=== PATIENT | female | born 1955 | race Caucasian/White ===

== ENCOUNTER 2020-03-25 22:21 | Observation (INO) | payer MEDICARE ==
[~2020-03-25] VITALS: Ht 165.1 cm; Wt 93.2 kg
[2020-03-25] MEDS ORDERED: normal saline 1000ML IV soln IVB ONE (22:55)
[2020-03-25 23:11] LABS: BASOPHILS % (AUTO) 0.3 % (0-1); EOSINOPHILS # (AUTO) 0.1 X10'3 (0-0.9); EOSINOPHILS % (AUTO) 1.6 % (0-6); HEMATOCRIT 40.6 % (35.0-45.0); LYMPHOCYTES # (AUTO) 2.1 X10'3 (1.1-4.8); LYMPHOCYTES % (AUTO) 28.9 % (21-51); MEAN CORPUSCULAR HGB CONC 34.6 g/dL (33.0-36.5); MEAN PLATELET VOLUME 8.5 FL (7.4-10.4); MONOCYTES # (AUTO) 0.4 X10'3 (0-0.9); MONOCYTES % (AUTO) 5.6 % (2-12); NEUTROPHILS # (AUTO) 4.7 X10'3 (1.8-7.7); NEUTROPHILS % (AUTO) 63.6 % (42-75); PLATELET COUNT 185 X10'3 (140-440); RED BLOOD COUNT 4.83 X10'6 (4.20-5.60); RED CELL DISTRIBUTION WIDTH 13.3 % (11.5-14.5); WHITE BLOOD COUNT 7.4 X10'3 (4.5-11.0)
[2020-03-25 23:26] LABS: ALANINE AMINOTRANSFERASE 17 U/L (12-78); ALBUMIN 3.7 G/DL (3.4-5.0); ALBUMIN/GLOBULIN RATIO 0.9 (1.1-1.5); ALKALINE PHOSPHATASE 101 IU/L (46-116); ANION GAP 13 (8-16); ASPARTATE AMINO TRANSFERASE 19 U/L (10-37); BILIRUBIN,TOTAL 0.9 MG/DL (0.1-1.0); BLOOD UREA NITROGEN 12 MG/DL (7-18); BUN/CREATININE RATIO 8.1 (6.6-38.0); CHLORIDE 105 MMOL/L (99-107); CREATININE 1.49 MG/DL (0.40-0.90); GLUCOSE 239 MG/DL (70-104); MAGNESIUM 2.1 MG/DL (1.5-2.4); POTASSIUM 3.5 MMOL/L (3.5-5.1); SODIUM 142 MMOL/L (135-145); TOTAL CARBON DIOXIDE 24.5 MMOL/L (24-32); TOTAL PROTEIN 7.8 G/DL (6.4-8.2); eGFR 35 ML/MIN
[2020-03-25] MEDS ORDERED: LOSA100T57 PO (23:53)
[2020-03-25] MEDS ORDERED: ZOLP5TAB2 PO (23:53)
[2020-03-25] MEDS ORDERED: CETI10TA15 PO (23:53)
[2020-03-25] MEDS ORDERED: SIMV-42 PO (23:53)
[2020-03-25] MEDS ORDERED: AMLO5TAB PO (23:53)
[2020-03-25] MEDS ORDERED: CYCL-394 PO (23:53)
[2020-03-25] MEDS ORDERED: DIPH25CA83 PO (23:53)
[2020-03-25] MEDS ORDERED: APIX5TAB3 PO (23:53)
[2020-03-25] MEDS ORDERED: METO100T7 PO (23:53)
[2020-03-25] MEDS ORDERED: DOCU-149 PO (23:53)
[2020-03-26] MEDS: normal saline 1000ml 1,000 ML IV SCH ×3 (00:02→20:34)
[2020-03-26] MEDS ORDERED: glucagon, human recombinant 1mg kit SUBCUT PRN (00:05)
[2020-03-26] MEDS ORDERED: ondansetron/PF 4mg/2ml inj IV PRN (00:05)
[2020-03-26] MEDS ORDERED: dextrose ORAL solution 15 GM/59 ML bottle PO PRN ×2 (00:05)
[2020-03-26] MEDS ORDERED: acetaminophen 325mg tablet PO PRN (00:05)
[2020-03-26] MEDS ORDERED: dextrose 50%-water 50ml dispensing syringe IV PRN ×2 (00:05)
[2020-03-26] MEDS ORDERED: morphine 2 MG/ML inj. syringe IV PRN ×2 (00:05)
[2020-03-26] MEDS ORDERED: mag hydrox/Alum hydrox/simeth 30ml oral suspension PO PRN (00:05)
[2020-03-26] MEDS ORDERED: magnesium hydroxide 30ml (MOM) UD suspension PO PRN (00:05)
[2020-03-26] MEDS ORDERED: MESSAGE TO PHARMACY PO ONE (00:05)
[2020-03-26 00:40] LABS: HEMOGLOBIN A1C 13.3 % (4.5-6.2)
[2020-03-26 01:20] VITALS: BP 143/70
[2020-03-26] MEDS ORDERED: cyclobenzaprine 10mg tablet PO PRN (04:45)
[2020-03-26] MEDS ORDERED: diphenhydrAMINE 25mg capsule PO PRN (04:45)
[2020-03-26 08:00] VITALS: BP 118/67
[2020-03-26] MEDS: amLODIPine 5mg tablet PO SCH (08:37)
[2020-03-26] MEDS: docusate sod 100mg capsule PO SCH ×2 (08:37→19:29)
[2020-03-26] MEDS: cetirizine 10mg tablet PO SCH (08:37)
[2020-03-26] MEDS: apixaban 5mg tablet PO SCH ×2 (08:38→19:29)
[2020-03-26] MEDS: losartan 50mg tablet PO SCH (08:38)
[2020-03-26] MEDS: metoprolol succinate 25mg (24-HOUR) SR. Tablet PO SCH (08:38)
[2020-03-26] MEDS: insulin Lispro (HumaLOG) vial - multi-dose SQ SCH ×3 (08:47→19:28)
[2020-03-26 12:00] VITALS: BP 123/72
--- NOTE | 2020-03-26 15:00 | NUR ---
DM/Frandy consult. Per H&P pt presents from [place] with DKA, BG over 1,000 mg/dl, reports she was taken of metformin months ago d/t worry of causing kidney injury, c/o polyuria. Her A1c is 11.3; eating 75-100% so far. Carb controlled diet. Pt seen at bedside and given written DM education handout; reports to recent polyuria, polydipsia, and states that she was scheduled to see a DM specialist in her home town however her appt was cancelled by the MD she was seeing. Discussed a DM educator being available at [facility] and encouraged patient to look into that as an option as she travels to [place] at times. No malnutrition. Will follow. Addendum: 03/26/20 at [address] Amended: Links added.
[2020-03-26 18:00] VITALS: BP 124/68
--- NOTE | 2020-03-26 18:18 | NUR ---
Problems reprioritized. Patient report given, questions answered & plan of care reviewed with YENI valladares.
--- NOTE | 2020-03-26 18:19 | NUR ---
Patient in room [facility] 346. I have received report from Cordelia JAIME and had the opportunity to ask questions and assume patient care.
[2020-03-26] MEDS ORDERED: atorvastatin 10mg tablet PO SCH (21:00)
[2020-03-26] MEDS ORDERED: insulin glargine (Lantus) pen - multi-dose SQ SCH (21:00)
[2020-03-27] VITALS: BP 110/65
[2020-03-27 05:15] LABS: BASOPHILS % (AUTO) 0.4 % (0-1); EOSINOPHILS # (AUTO) 0.1 X10'3 (0-0.9); EOSINOPHILS % (AUTO) 1.5 % (0-6); HEMATOCRIT 36.9 % (35.0-45.0); HEMOGLOBIN 12.7 g/dl (12.0-16.0); LYMPHOCYTES # (AUTO) 1.9 X10'3 (1.1-4.8); LYMPHOCYTES % (AUTO) 32.9 % (21-51); MEAN CORPUSCULAR HEMOGLOBIN 29.4 PG (27.0-31.0); MEAN CORPUSCULAR HGB CONC 34.3 g/dL (33.0-36.5); MEAN CORPUSCULAR VOLUME 85.7 FL (78-98); MEAN PLATELET VOLUME 8.5 FL (7.4-10.4); MONOCYTES # (AUTO) 0.3 X10'3 (0-0.9); MONOCYTES % (AUTO) 4.6 % (2-12); NEUTROPHILS # (AUTO) 3.4 X10'3 (1.8-7.7); NEUTROPHILS % (AUTO) 60.6 % (42-75); PLATELET COUNT 158 X10'3 (140-440); RED BLOOD COUNT 4.31 X10'6 (4.20-5.60); RED CELL DISTRIBUTION WIDTH 13.3 % (11.5-14.5); WHITE BLOOD COUNT 5.7 X10'3 (4.5-11.0)
[2020-03-27 05:23] LABS: ALBUMIN 2.8 G/DL (3.4-5.0); ANION GAP 8 (8-16); BLOOD UREA NITROGEN 14 MG/DL (7-18); BUN/CREATININE RATIO 11.7 (6.6-38.0); CALCIUM 8.5 MG/DL (8.5-10.1); CHLORIDE 110 MMOL/L (99-107); GLUCOSE 104 MG/DL (70-104); POTASSIUM 3.6 MMOL/L (3.5-5.1); SODIUM 141 MMOL/L (135-145); TOTAL CARBON DIOXIDE 23.1 MMOL/L (24-32); eGFR 46 ML/MIN
[2020-03-27] MEDS: normal saline 1000ml 1,000 ML IV SCH (06:02)
--- NOTE | 2020-03-27 06:31 | NUR ---
Problems reprioritized. Patient report given, questions answered & plan of care reviewed with NINOSKA JAIME.
--- NOTE | 2020-03-27 06:34 | NUR ---
Patient in room [facility] 346. I have received report from Lola JAIME and had the opportunity to ask questions and assume patient care.
--- NOTE | 2020-03-27 06:39 | NUR ---
Patient in room [facility] 346. I have received report from YENI Davila and had the opportunity to ask questions and assume patient care.
[2020-03-27] MEDS: metoprolol succinate 25mg (24-HOUR) SR. Tablet PO SCH (07:26)
[2020-03-27] MEDS: docusate sod 100mg capsule PO SCH (07:27)
[2020-03-27] MEDS: cetirizine 10mg tablet PO SCH (07:27)
[2020-03-27] MEDS: amLODIPine 5mg tablet PO SCH (07:27)
[2020-03-27] MEDS: apixaban 5mg tablet PO SCH (07:27)
[2020-03-27] MEDS: losartan 50mg tablet PO SCH (07:27)
[2020-03-27 07:29] VITALS: BP 118/70
[2020-03-27] MEDS: insulin Lispro (HumaLOG) vial - multi-dose SQ SCH ×2 (08:50→12:09)
[2020-03-27] MEDS ORDERED: LANTUS SQ (10:18)
[2020-03-27] MEDS ORDERED: SITA100T11 PO (10:18)
[2020-03-27] MEDS ORDERED: INSU100V11 SQ (10:18)
[2020-03-27 11:33] VITALS: BP 101/53
--- NOTE | 2020-03-27 12:33 | NUR ---
Patient was discharge per Dr Katz. Patient was educated on Diabetes Survival Skills and insulin and Januvia. IV removed with cannula intact. Discharge and medication instructions given to patient. Patient was escorted downstairs to main lobby via wheelchair. Left the facility via POV. Accompanied by family member.
--- NOTE | 2020-03-27 15:25 | NUR ---
Pt phoned to report she is unable to afford the prescription as quoted by Steve in [place], but will be able to get them, and prefers to get them, on Sunday from [facility] in [place]. Pt. spoke w/ KARI Holguin, regarding this situation. Chelsie then discussed w/ Dr. Katz, who then confirmed pt could wait until Sunday to start meds. Patient's prescription was phoned to [facility] ([phone]) via voicemail, then notification to pt was attempted. [facility] call back number was left on pt's voicemail.
== END 2020-03-27 12:15 | disposition home or self-care (01) ==
LOC: ER 22:22 → ED HOLD 03-26 00:02 → UNDOADMOB 03-26 00:43 → SUR 3N 03-26 01:05 → ED HOLD 03-26 01:05
PROVIDERS: ADMIT Internal Medicine; ATTEND Family Medicine
DX: E11.65 Type 2 diabetes mellitus with hyperglycemia (principal); E11.10 Type 2 diabetes mellitus with ketoacidosis without coma; E11.22 Type 2 diabetes mellitus with diabetic chronic kidney disease; I12.9 Hypertensive chronic kidney disease with stage 1 through stage 4 chronic kidney disease, or unspecified chronic kidney disease; N18.9 Chronic kidney disease, unspecified; E78.5 Hyperlipidemia, unspecified; I48.91 Unspecified atrial fibrillation; Z86.73 Personal history of transient ischemic attack (TIA), and cerebral infarction without residual deficits; Z90.710 Acquired absence of both cervix and uterus; Z79.01 Long term (current) use of anticoagulants; Z79.4 Long term (current) use of insulin; Z79.899 Other long term (current) drug therapy; Z88.5 Allergy status to narcotic agent
CPT/HCPCS: 36415; 80048; 80053; 82948; 83735; 85025; 87081; 96360; 96361; 99291; G0378; J1815; J7030; 83036; 83880